=== PATIENT | female | born 1945 | race Two or more races ===

== ENCOUNTER 2018-09-04 05:03 | Day surgery (SDC) | payer OTHER ==
[~2018-09-04 05:03] MED LIST: LISINOPRIL20 MG; SYNTHROID75 MCG PO
== END 2018-09-04 17:45 | disposition home or self-care (01) ==
LOC: CIR.AMB 05:03
DX: N62 Hypertrophy of breast (principal); L82.1 Other seborrheic keratosis

== ENCOUNTER 2021-09-22 08:07 | Outpatient (CLI) | payer OTHER | END 2021-09-22 08:12 | disposition home or self-care (01) | LOC: NUCLEAR 08:07 | PROVIDERS: ATTEND General Practice | DX: H34.9 Unspecified retinal vascular occlusion (principal) ==